=== PATIENT | female | born 1940 | race Caucasian/White ===

== ENCOUNTER → 2017-10-21 | Outpatient (CLI) | payer MEDICARE, OTHER ==
[~2017-10-21] MED LIST: ALEN10; CIPR500 PO; CLON.5 PO; CRUTCH2 USE; Flagyl500 MG PO; HYDACE5 PO; HYDR-86 PO; LISI5; RALO60; Zofran Odt8 MG PO
== END | disposition home or self-care (01) ==
LOC: LAB SHORT 15:50 → PLD 15:50
DX: D22.71 Melanocytic nevi of right lower limb, including hip (principal); L82.1 Other seborrheic keratosis
CPT/HCPCS: 88305

== ENCOUNTER 2018-12-24 09:42 | Day surgery (SDC) | payer MEDICARE, OTHER ==
[~2018-12-24] VITALS: Ht 152.4 cm; Wt 65.3 kg
[~2018-12-24 09:42] MED LIST changes: -ALEN10; +ALEN70 PO; -RALO60; +RALO60 PO
[2018-12-24] MEDS ORDERED: METO25ER (10:06)
[2018-12-24] MEDS ORDERED: CELE200 PO (10:19)
[2018-12-24] MEDS ORDERED: ABAT250V (10:19)
[2019-01-28] MEDS ORDERED: METO25 PO (11:22)
== END 2018-12-24 10:56 | disposition home or self-care (01) ==
LOC: ORSCSDS 09:42
PROVIDERS: Anesthesiology
PROC: 3E0R33Z Introduction of Anti-inflammatory into Spinal Canal, Percutaneous Approach (ICD-10-PCS; principal; 2018-12-24 11:00)
DX: M51.16 Intervertebral disc disorders with radiculopathy, lumbar region (principal); Z87.891 Personal history of nicotine dependence; Z79.899 Other long term (current) drug therapy
CPT/HCPCS: J1040

== ENCOUNTER 2019-02-05 12:21 | Day surgery (SDC) | payer MEDICARE, OTHER ==
[~2019-02-05] VITALS: Ht 152.4 cm; Wt 67.2 kg
[~2019-02-05 12:21] MED LIST changes: +ABAT250V; +CELE200 PO; +METO25 PO; +METO25ER
[2019-02-05] MEDS ORDERED: LOSA25 (13:33)
== END 2019-02-05 14:21 | disposition home or self-care (01) ==
LOC: ORSCSDS 12:21
PROVIDERS: Anesthesiology
PROC: 3E0R33Z Introduction of Anti-inflammatory into Spinal Canal, Percutaneous Approach (ICD-10-PCS; principal; 2019-02-05 13:30)
DX: M51.16 Intervertebral disc disorders with radiculopathy, lumbar region (principal); I10 Essential (primary) hypertension; Z79.899 Other long term (current) drug therapy
CPT/HCPCS: J1040

== ENCOUNTER 2019-03-02 11:29 | Emergency (ER) | payer MEDICARE, OTHER ==
[~2019-03-02] VITALS: Ht 152.4 cm; Wt 64.4 kg
[~2019-03-02 11:29] MED LIST changes: +LOSA25
[2019-03-02] MEDS ORDERED: OXYC5 PO (11:47)
[2019-03-02 13:15] LABS: Source, Urine Clean Catch
[2019-03-02 13:18] LABS: Bilirubin, Urine Neg (Neg); Blood, Urine Neg (Neg); Glucose Qualitative, Urine Neg (Neg); Ketones, Urine Neg (Neg); Leukocyte Esterase, Urine 1+ (Neg); Nitrite, Urine Neg (Neg); Protein, Urine Neg (Neg); Specific Gravity, Urine 1.015 (1.003-1.022); Urobilinogen, Urine NORM (Normal)
[2019-03-02 13:23] LABS: BASOPHILS ABSOLUTE AUTO 0.02 K/mm3 (0.00-0.23); BASOPHILS PERCENT AUTO 0 % (0-2); EOSINOPHILS ABSOLUTE AUTO 0.09 K/mm3 (0.00-0.68); EOSINOPHILS PERCENT AUTO 1 % (0-6); Hematocrit 38.1 % (33.0-51.0); Hemoglobin 12.3 g/dL (11.5-16.0); IMMATURE GRAN ABSOLUTE AUTO 0.04 K/mm3 (0.00-0.10); IMMATURE GRAN PERCENT AUTO 1 % (0-1); LYMPHOCYTES ABSOLUTE AUTO 1.18 K/mm3 (0.84-5.20); LYMPHOCYTES PERCENT AUTO 14 % (21-46); MONOCYTES ABSOLUTE AUTO 0.74 K/mm3 (0.16-1.47); MONOCYTES PERCENT AUTO 9 % (4-13); Mean Corpuscular HGB 31.6 pg (26.0-34.0); Mean Corpuscular HGB Conc 32.3 g/dL (31.5-36.5); Mean Corpuscular Volume 98 fL (80-100); Mean Platelet Volume 12.4 fL (9.1-12.4); NEUTROPHILS ABSOLUTE AUTO 6.49 K/mm3 (1.96-9.15); NEUTROPHILS PERCENT AUTO 76 % (41-73); Platelet Count 121 K/mm3 (150-400); RDW Coefficient Variation 13.5 % (11.7-14.2); RDW Standard Deviation 49.1 fL (35.1-46.3); Red Blood Cell Count 3.89 M/mm3 (3.80-5.20); White Blood Cell Count 8.56 K/mm3 (4.00-11.30)
[2019-03-02 13:26] LABS: Appearance, Urine Clear (Clear); Color, Urine Yellow (P-Yellow)
[2019-03-02 13:27] LABS: Bacteria Rare /hpf; Red Blood Cells, Urine 0-2 /hpf (0-2); Squamous Epithelial Cells Few /hpf (Few); White Blood Cells, Urine 0-2 /hpf (0-5)
[2019-03-02 13:36] LABS: Alanine Aminotransfer (ALT/SGP 23 U/L (12-78); Albumin, Blood 3.5 g/dL (3.4-5.0); Albumin/Globulin Ratio 0.9 (0.8-1.8); Alk Phos 49 U/L (50-136); Anion Gap 8 mmol/L (6-16); Aspartate Aminotrans (AST/SGOT 27 U/L (12-37); Bilirubin, Total 0.5 mg/dL (0.1-1.0); Blood Urea Nitrogen 26 mg/dL (8-24); Bun/Creatinine Ratio 46.8 (12.0-20.0); CO2, Blood 26 mmol/L (21-32); Calcium, Blood 8.9 mg/dL (8.5-10.1); Chloride, Blood 107 mmol/L (98-108); Creatinine, Blood 0.56 mg/dL (0.40-1.00); Globulin, Blood 3.8 g/dL (2.2-4.0); Glomerular Filtration Rate >60 (60-); Glucose, Blood 105 mg/dL (70-99); Potassium, Blood 3.7 mmol/L (3.5-5.5); Sodium, Blood 141 mmol/L (136-145); Total Protein, Blood 7.3 g/dL (6.4-8.2)
[2019-03-02] MEDS ORDERED: Protonix40 MG PO (13:56)
== END 2019-03-02 13:58 | disposition home or self-care (01) ==
LOC: ER 11:29
PROVIDERS: Internal Medicine
DX: K21.9 Gastro-esophageal reflux disease without esophagitis (principal); I10 Essential (primary) hypertension; Z87.891 Personal history of nicotine dependence; Z88.8 Allergy status to other drugs, medicaments and biological substances; Z88.5 Allergy status to narcotic agent; Z79.899 Other long term (current) drug therapy
CPT/HCPCS: 36415; 80053; 81001; 83690; 85025; 87086; 93005; 93010; 99284-25

== ENCOUNTER 2019-07-10 11:36 | Day surgery (SDC) | payer MEDICARE, OTHER ==
[~2019-07-10] VITALS: Ht 152.4 cm; Wt 66.7 kg
[~2019-07-10 11:36] MED LIST changes: +CELE100 PO; +HYDR1TAB94 PO; -LOSA25; +LOSA25 PO; +OXYC5 PO; +Protonix40 MG PO
--- NOTE | 2019-07-10 13:45 | NUR ---
07/10/19 6934 Tia Calderon PT WAS NOTIFIED UPON ARRIVAL OF DELAY, SHE WAS UPDATED FREQUENTLY ON APPROXIMATE START TIME. SHE HAD CALL LIGHT WITHIN REACH AND WAS GIVEN AN ADDITIONAL BLANKET. BED WAS IN THE LOWEST LOCKED POSITION.
--- NOTE | 2019-07-10 15:02 | NUR ---
07/10/19 1502 Gita Piper ASSUMED CARE OF PATIENT AT 1450. PATIENT IS STABLE WITHOUT ANY PAIN. IS AT SIDE, ICE PACK UNDER RIGHT ANKLE. PATIENT IS TOLERATING PO FLUIDS/FOOD. PATIENT WILL BE DISCHARGED HOME.
== END 2019-07-10 15:11 | disposition home or self-care (01) ==
LOC: ORSCSDS 11:36
PROVIDERS: Podiatrist Foot & Ankle Surgery
PROC: 0SRP0JZ Replacement of Right Toe Phalangeal Joint with Synthetic Substitute, Open Approach (ICD-10-PCS; principal; 2019-07-10 13:00)
DX: M20.41 Other hammer toe(s) (acquired), right foot (principal); M20.61 Acquired deformities of toe(s), unspecified, right foot; I10 Essential (primary) hypertension; I25.2 Old myocardial infarction; B19.10 Unspecified viral hepatitis B without hepatic coma; Z87.891 Personal history of nicotine dependence; Z79.899 Other long term (current) drug therapy
CPT/HCPCS: J0171; J0690; J2250; J2704; J7120

== ENCOUNTER → 2021-08-02 | Outpatient (CLI) | payer MEDICARE, OTHER | END | disposition home or self-care (01) | LOC: LAB SHORT 14:00 → LAB 14:00 | DX: A49.9 Bacterial infection, unspecified (principal); L81.4 Other melanin hyperpigmentation; L82.1 Other seborrheic keratosis; D22.5 Melanocytic nevi of trunk; D22.39 Melanocytic nevi of other parts of face; D22.61 Melanocytic nevi of right upper limb, including shoulder; D22.62 Melanocytic nevi of left upper limb, including shoulder; D48.5 Neoplasm of uncertain behavior of skin; L82.0 Inflamed seborrheic keratosis; L29.8 Other pruritus; B37.2 Candidiasis of skin and nail | CPT/HCPCS: 87070; 87205 ==

== ENCOUNTER → 2022-11-17 | Outpatient (CLI) | payer MEDICARE, OTHER ==
[~2022-11-17] MED LIST changes: +AZIT250 PO
[2022-11-17 14:06] LABS: BASOPHILS ABSOLUTE AUTO 0.05 K/mm3 (0.00-0.23); BASOPHILS PERCENT AUTO 1 % (0-2); EOSINOPHILS ABSOLUTE AUTO 0.16 K/mm3 (0.00-0.68); EOSINOPHILS PERCENT AUTO 2 % (0-6); Hematocrit 36.4 % (33.0-51.0); IMMATURE GRAN ABSOLUTE AUTO 0.03 K/mm3 (0.00-0.10); IMMATURE GRAN PERCENT AUTO 0 % (0-1); LYMPHOCYTES ABSOLUTE AUTO 1.97 K/mm3 (0.84-5.20); LYMPHOCYTES PERCENT AUTO 19 % (21-46); MONOCYTES ABSOLUTE AUTO 0.93 K/mm3 (0.16-1.47); MONOCYTES PERCENT AUTO 9 % (4-13); Mean Corpuscular HGB 30.9 pg (26.0-34.0); Mean Corpuscular Volume 94 fL (80-100); Mean Platelet Volume 10.8 fL (9.1-12.4); NEUTROPHILS ABSOLUTE AUTO 7.46 K/mm3 (1.96-9.15); NEUTROPHILS PERCENT AUTO 70 % (41-73); Platelet Count 249 K/mm3 (150-400); RDW Coefficient Variation 13.3 % (11.7-14.2); RDW Standard Deviation 45.9 fL (35.1-46.3); Red Blood Cell Count 3.88 M/mm3 (3.80-5.20)
[2022-11-17 14:16] LABS: Albumin, Blood 3.3 g/dL (3.4-5.0); Albumin/Globulin Ratio 0.6 (0.8-1.8); Bilirubin, Total 0.3 mg/dL (0.1-1.0); Bun/Creatinine Ratio 52.1 (12.0-20.0); Calcium, Blood 9.7 mg/dL (8.5-10.1); Creatinine, Blood 0.71 mg/dL (0.40-1.00); Globulin, Blood 5.2 g/dL (2.2-4.0); Potassium, Blood 4.1 mmol/L (3.5-5.5); Total Protein, Blood 8.5 g/dL (6.4-8.2)
== END | disposition home or self-care (01) ==
LOC: LAB 14:01 → LAB SHORT 14:01
PROVIDERS: Physician Assistant Surgical
DX: R10.11 Right upper quadrant pain (principal)
CPT/HCPCS: 80053; 83690; 85025

== ENCOUNTER 2022-11-21 11:49 | Emergency (ER) | payer MEDICARE, OTHER ==
[~2022-11-21] VITALS: Ht 149.9 cm; Wt 65.3 kg
[~2022-11-21 11:49] MED LIST changes: -AZIT250 PO
[2022-11-21 13:46] LABS: BASOPHILS ABSOLUTE AUTO 0.04 K/mm3 (0.00-0.23); BASOPHILS PERCENT AUTO 0 % (0-2); EOSINOPHILS ABSOLUTE AUTO 0.09 K/mm3 (0.00-0.68); EOSINOPHILS PERCENT AUTO 1 % (0-6); Hematocrit 38.3 % (33.0-51.0); Hemoglobin 12.6 g/dL (11.5-16.0); IMMATURE GRAN ABSOLUTE AUTO 0.04 K/mm3 (0.00-0.10); IMMATURE GRAN PERCENT AUTO 0 % (0-1); LYMPHOCYTES ABSOLUTE AUTO 2.08 K/mm3 (0.84-5.20); LYMPHOCYTES PERCENT AUTO 22 % (21-46); MONOCYTES ABSOLUTE AUTO 0.63 K/mm3 (0.16-1.47); MONOCYTES PERCENT AUTO 7 % (4-13); Mean Corpuscular HGB 30.7 pg (26.0-34.0); Mean Corpuscular HGB Conc 32.9 g/dL (31.5-36.5); Mean Corpuscular Volume 93 fL (80-100); Mean Platelet Volume 10.6 fL (9.1-12.4); NEUTROPHILS PERCENT AUTO 69 % (41-73); Platelet Count 291 K/mm3 (150-400); RDW Coefficient Variation 13.3 % (11.7-14.2); RDW Standard Deviation 46.1 fL (35.1-46.3); Red Blood Cell Count 4.11 M/mm3 (3.80-5.20); White Blood Cell Count 9.28 K/mm3 (4.00-11.30)
[2022-11-21 14:10] LABS: Albumin, Blood 3.6 g/dL (3.4-5.0); Albumin/Globulin Ratio 0.7 (0.8-1.8); Bilirubin, Total 0.3 mg/dL (0.1-1.0); Calcium, Blood 9.6 mg/dL (8.5-10.1); Creatinine, Blood 0.63 mg/dL (0.40-1.00); Globulin, Blood 5.3 g/dL (2.2-4.0); Potassium, Blood 3.7 mmol/L (3.5-5.5); Total Protein, Blood 8.9 g/dL (6.4-8.2)
[2022-11-21 14:29] LABS: Source, Urine Clean Catch
[2022-11-21 14:36] LABS: Appearance, Urine Clear (Clear); Bilirubin, Urine Neg (Neg); Blood, Urine Neg (Neg); Color, Urine Yellow (P-Yellow); Glucose Qualitative, Urine Neg (Neg); Ketones, Urine Neg (Neg); Leukocyte Esterase, Urine Neg (Neg); Nitrite, Urine Pos (Neg); Protein, Urine Neg (Neg); Specific Gravity, Urine 1.005 (1.003-1.022); Urobilinogen, Urine NORM (Normal)
[2022-11-21 16:00] LABS: Bacteria Many /hpf; Red Blood Cells, Urine 0-2 /hpf (0-2); Squamous Epithelial Cells Rare /hpf (Few); Transitional Epithelial Cells Rare /hpf (0-Rare)
[2022-11-21 16:30] VITALS: BP 160/72
[2022-11-21] MEDS ORDERED: AZIT250 PO (16:39)
== END 2022-11-21 16:58 | disposition home or self-care (01) ==
LOC: ER 11:49
PROVIDERS: Emergency Medicine
DX: J18.9 Pneumonia, unspecified organism (principal); R10.11 Right upper quadrant pain; R07.9 Chest pain, unspecified; Z87.891 Personal history of nicotine dependence
CPT/HCPCS: 71046; 74177; 80053; 81001; 83690; 84484; 85025; 96361; 96374-59; 96375; 99284-25; J1170; J2405; J3010; J7030; Q9967

== ENCOUNTER 2024-02-16 18:28 | Inpatient (IN) | payer MEDICARE, OTHER ==
[~2024-02-16] VITALS: Ht 149.9 cm; Wt 58.5 kg
[~2024-02-16 18:28] MED LIST changes: +AZIT250 PO
[2024-02-16] MEDS ORDERED: METOPROLOL SUCC25 MG PO (18:54)
[2024-02-16] MEDS ORDERED: PARO10 PO (18:55)
[2024-02-16] MEDS ORDERED: FentaNYL Citrate 50 MCG/ML 2 ML Injection IV ONE ×2 (19:20→21:40)
[2024-02-16 19:38] LABS: BASOPHILS ABSOLUTE AUTO 0.03 K/mm3 (0.00-0.23); BASOPHILS PERCENT AUTO 0 % (0-2); EOSINOPHILS ABSOLUTE AUTO 0.07 K/mm3 (0.00-0.68); EOSINOPHILS PERCENT AUTO 1 % (0-6); Hematocrit 34.6 % (33.0-51.0); Hemoglobin 10.9 g/dL (11.5-16.0); IMMATURE GRAN ABSOLUTE AUTO 0.06 K/mm3 (0.00-0.10); IMMATURE GRAN PERCENT AUTO 1 % (0-1); LYMPHOCYTES PERCENT AUTO 11 % (21-46); MONOCYTES ABSOLUTE AUTO 0.61 K/mm3 (0.16-1.47); MONOCYTES PERCENT AUTO 6 % (4-13); Mean Corpuscular HGB 28.3 pg (26.0-34.0); Mean Corpuscular HGB Conc 31.5 g/dL (31.5-36.5); Mean Corpuscular Volume 90 fL (80-100); Mean Platelet Volume 11.4 fL (9.1-12.4); NEUTROPHILS ABSOLUTE AUTO 8.33 K/mm3 (1.96-9.15); NEUTROPHILS PERCENT AUTO 82 % (41-73); Platelet Count 176 K/mm3 (150-400); RDW Coefficient Variation 15.8 % (11.7-14.2); RDW Standard Deviation 51.7 fL (35.1-46.3); Red Blood Cell Count 3.85 M/mm3 (3.80-5.20)
[2024-02-16 19:55] LABS: Albumin, Blood 3.2 g/dL (3.4-5.0); Albumin/Globulin Ratio 0.8 (0.8-1.8); Bilirubin, Total 0.2 mg/dL (0.1-1.0); Bun/Creatinine Ratio 51.2 (12.0-20.0); Calcium, Blood 8.8 mg/dL (8.5-10.1); Creatinine, Blood 0.53 mg/dL (0.40-1.00); Globulin, Blood 4.2 g/dL (2.2-4.0); Potassium, Blood 3.2 mmol/L (3.5-5.5); Total Protein, Blood 7.4 g/dL (6.4-8.2)
[2024-02-16] MEDS ORDERED: HydrALAZINE HCl 20 MG / ML 1ML Vial IV PRN (23:50)
[2024-02-16] MEDS ORDERED: FentaNYL Citrate 50 MCG/ML 2 ML Injection IV PRN (23:50)
[2024-02-17] VITALS (9 sets, daily range): BP systolic 146–189; BP diastolic 58–95
[2024-02-17] MEDS ORDERED: Potassium Chloride 40 MEQ in NS 250 ML IV ONE (00:30)
[2024-02-17] MEDS ORDERED: RALO60 PO (00:49)
[2024-02-17] MEDS ORDERED: NS 250 ML IV PRN (01:00)
[2024-02-17] MEDS ORDERED: NS 1,000 ML IV SCH (01:00)
--- NOTE | 2024-02-17 01:30 | NUR ---
WHEN DISCUSSING CODE STATUS, PATIENT REQUESTING TO BE A DNR. CURRENT ORDER FOR FULL CODE. EDUCATION PROVIDED REGARDING DNR STATUS - PATIENT VERBALIZES UNDERSTANDING AND WISHES TO BE A DNR. MD CONTACTED. ORDER RECEIVED TO CHANGE CODE STATUS TO DNR.
--- NOTE | 2024-02-17 01:44 | NUR ---
ARRIVAL TO PCU AFTER RECEIVING REPORT FROM ED RN, PATIENT TRANSFERRED TO PCU AT APPROX 0030. PATIENT TRANSFERRED FROM ED GURNEY TO BED VIA SLIDER SHEET. PATIENT ALERT AND ORIENTED X4. COMMUNICATES NEEDS EFFECTIVELY. S/P GROUND LEVEL FALL AT HOME - DENIES LOC. PERRLA. MOVES ALL EXTREMITIES ON COMMAND WITH LIMITED MOBILITY TO LUE DUE TO L CLAVICLE FX. MULTIPLE RIB FXs. REPORTS PAIN TOLERABLE AT 4/10 - WILL CONTINUE TO MONITOR AND MEDICATE PER EMAR PRN. TELEMETRY SHOWING SINUS 60s-70s. SBP 160s - PATIENT REPORTS THAT IS HER BASELINE BP. PRN IV HYDRALAZINE ORDERED FOR SBP >170. DENIES CHEST PRESSURE, PALPITATIONS. ON ROOM AIR, SATs >90%. RR SHALLOW, EVEN, AND UNLABORED. INCENTIVE SPIROMETER AT BEDSIDE - EDUCATED ON USE. PATIENT USES FWW AT BASELINE - UP TO BSC WITH SBA. CALL LIGHT IN REACH. IVF AND IV POTASSIUM INFUSING PER EMAR.
[2024-02-17 03:50] LABS: BASOPHILS ABSOLUTE AUTO 0.04 K/mm3 (0.00-0.23); BASOPHILS PERCENT AUTO 0 % (0-2); EOSINOPHILS ABSOLUTE AUTO 0.02 K/mm3 (0.00-0.68); EOSINOPHILS PERCENT AUTO 0 % (0-6); Hematocrit 35.1 % (33.0-51.0); Hemoglobin 11.1 g/dL (11.5-16.0); IMMATURE GRAN ABSOLUTE AUTO 0.05 K/mm3 (0.00-0.10); IMMATURE GRAN PERCENT AUTO 1 % (0-1); LYMPHOCYTES ABSOLUTE AUTO 1.49 K/mm3 (0.84-5.20); LYMPHOCYTES PERCENT AUTO 15 % (21-46); MONOCYTES ABSOLUTE AUTO 0.83 K/mm3 (0.16-1.47); MONOCYTES PERCENT AUTO 8 % (4-13); Mean Corpuscular HGB 28.5 pg (26.0-34.0); Mean Corpuscular HGB Conc 31.6 g/dL (31.5-36.5); Mean Corpuscular Volume 90 fL (80-100); Mean Platelet Volume 11.3 fL (9.1-12.4); NEUTROPHILS ABSOLUTE AUTO 7.74 K/mm3 (1.96-9.15); NEUTROPHILS PERCENT AUTO 76 % (41-73); Platelet Count 162 K/mm3 (150-400); RDW Coefficient Variation 15.9 % (11.7-14.2); RDW Standard Deviation 52.9 fL (35.1-46.3); Red Blood Cell Count 3.89 M/mm3 (3.80-5.20); White Blood Cell Count 10.17 K/mm3 (4.00-11.30)
[2024-02-17 04:14] LABS: Albumin, Blood 3.2 g/dL (3.4-5.0); Albumin/Globulin Ratio 0.8 (0.8-1.8); Bilirubin, Total 0.2 mg/dL (0.1-1.0); Bun/Creatinine Ratio 41.3 (12.0-20.0); Calcium, Blood 8.4 mg/dL (8.5-10.1); Creatinine, Blood 0.51 mg/dL (0.40-1.00); Globulin, Blood 4.1 g/dL (2.2-4.0); Potassium, Blood 3.8 mmol/L (3.5-5.5); Total Protein, Blood 7.3 g/dL (6.4-8.2)
--- NOTE | 2024-02-17 05:19 | NUR ---
SHIFT SUMMARY NO ACUTE EVENTS SINCE ARRIVAL TO PCU. PATIENT SLEPT T/O, EASILY AROUSABLE WITH VERBAL STIMULI. MEDICATED X1 WITH IV FENTANYL FOR L CLAVICLE, RIB FX PAIN. TELEMETRY SHOWING SINUS LO 50s-60s. PATIENT DID EXPERIENCE X1 2.60 PAUSE, PATIENT ASYMPTOMATIC DURING EPISODE. STRIP SCANNED TO CHART BY SOUND MIXER. BP STABLE, SBP 150s-160s. REMAINS ON ROOM AIR, SATs >90%. RR REMAIN SHALLOW, EVEN. MILD SHORTNESS OF BREATH WITH MOBILITY. UP TO BSC TO VOID WITH SBA FROM STAFF. IVF INFUSING PER EMAR. CALL LIGHT IN REACH. WILL CONTINUE TO MONITOR AND REPORT TO ONCOMING RN.
[2024-02-17] MEDS ORDERED: Acetaminophen 325 MG TABLET PO PRN (09:30)
[2024-02-17] MEDS ORDERED: FentaNYL Citrate 50 MCG/ML 2 ML Injection IV PRN (09:55)
[2024-02-17] MEDS ORDERED: HYDROcodone 5-APAP 325 TAB PO PRN (09:55)
--- NOTE | 2024-02-17 17:28 | NUR ---
SHIFT SUMMARY PT A&OX4. SP02>90% ON RA. INCENTIVE SPIROMETER IN ROOM, PT ENCOURAGED TO USE. PT STATES "I GOT TO 500 THIS MORNING". PT CHANGED TO SURGICAL NO TELE STATUS. HTN NOTED, PT STATES "NORMAL" FOR HER. HYDRALAZINE GIVEN X1 PER EMAR. MD SAUCEDO IN ROOM TO CONSULT. MD GUERRERO IN ROOM TO CONSULT. MD GUERRERO W/ ORDERS FOR ARM SLING WHEN AMBULATING. PLACED L ARM IN SLING. PT IN ROOM TO EVALUATE PT. PT ABLE TO AMBULATED 1P ASSIST W/ HEMIWALKER AND GB TO BATHROOM. PT C/O OF PAIN, MEDICATED W/ TYLENOL PER EMAR. PT MEDICATED W/ NORCO PER EMAR THIS EVENING, STATES THAT IS WHAT SHE TAKES AT HOME FOR PAIN. PT'S AND DAUGHTER IN ROOM THIS EVENING. PT SITTING IN CHAIR EATING DINNER. CALL LIGHT IN REACH.
[2024-02-17] MEDS ORDERED: Docusate Sodium 100 MG Cap PO SCH (21:00)
[2024-02-17] MEDS ORDERED: ClonazePAM 0.5 MG Tab PO SCH (21:00)
[2024-02-17] MEDS ORDERED: Losartan Potassium 50 MG Tab PO SCH (21:00)
[2024-02-17] MEDS ORDERED: Metoprolol Succinate 25 MG TABCR PO SCH (21:00)
--- NOTE | 2024-02-18 00:12 | NUR ---
PT SLEEPING, EVEN, UNLABORED RESPIRATIONS NOTED. BED IN LOWEST POSITION, BRAKES ON, UPPER SIDES RAILS UP. CALL LIGHT AND BED SIDE TABLE IN REACH.
[2024-02-18 03:40] VITALS: BP 156/77
[2024-02-18 04:04] LABS: BASOPHILS ABSOLUTE AUTO 0.04 K/mm3 (0.00-0.23); BASOPHILS PERCENT AUTO 0 % (0-2); EOSINOPHILS ABSOLUTE AUTO 0.19 K/mm3 (0.00-0.68); EOSINOPHILS PERCENT AUTO 2 % (0-6); Hematocrit 34.2 % (33.0-51.0); IMMATURE GRAN ABSOLUTE AUTO 0.03 K/mm3 (0.00-0.10); IMMATURE GRAN PERCENT AUTO 0 % (0-1); LYMPHOCYTES ABSOLUTE AUTO 2.04 K/mm3 (0.84-5.20); LYMPHOCYTES PERCENT AUTO 22 % (21-46); MONOCYTES ABSOLUTE AUTO 1.08 K/mm3 (0.16-1.47); MONOCYTES PERCENT AUTO 12 % (4-13); Mean Corpuscular HGB 28.7 pg (26.0-34.0); Mean Corpuscular HGB Conc 32.2 g/dL (31.5-36.5); Mean Corpuscular Volume 89 fL (80-100); Mean Platelet Volume 11.5 fL (9.1-12.4); NEUTROPHILS ABSOLUTE AUTO 5.84 K/mm3 (1.96-9.15); NEUTROPHILS PERCENT AUTO 63 % (41-73); Platelet Count 167 K/mm3 (150-400); RDW Coefficient Variation 15.9 % (11.7-14.2); RDW Standard Deviation 52.5 fL (35.1-46.3); Red Blood Cell Count 3.83 M/mm3 (3.80-5.20); White Blood Cell Count 9.22 K/mm3 (4.00-11.30)
[2024-02-18 04:25] LABS: Bun/Creatinine Ratio 23.9 (12.0-20.0); Calcium, Blood 8.2 mg/dL (8.5-10.1); Creatinine, Blood 0.5 mg/dL (0.40-1.00); Potassium, Blood 3.5 mmol/L (3.5-5.5)
--- NOTE | 2024-02-18 05:16 | NUR ---
INFORMED BY BREAK NURSE PT HAD A SIGNIFICANT DESAT WHILE SLEEPING. O2 WAS PLACED AND PT SATS IMPROVED UPON AWAKING. PT ASSESSED AND O2 REMOVED AT THIS TIME. PT IS AWAKE, AOX4 IN BED, MILDLY TEARFUL THE EVENT AND SHOCK OF BEING WOKEN UP HAS SCARED HER. REASSURED PT. PT HAS BEEN STABLE THROUGHOUT THE SHIFT, NO PREVIOUS EPISODEDS OF LOW SATS.
--- NOTE | 2024-02-18 06:43 | NUR ---
PT WAS STABLE THROUGHOUT SHIFT UNTIL X1 EPISODE OF LOW O2 SATS WHILE SLEEPING. PT RECOVERED QUICKLY PER OTHER NURSING STAFF AFTER BEING WOKEN UP AND O2 APPLIED. PT RE-ASSESSED AND O2 WAS REMOVED. PT WAS MAINTAINING GOOD O2 SATS PRIOR TO THIS AND HAS RESUMED MAINTAINING GOOD O2 SATS AFTER EVENT. PT REMAINS AOX4 WITH NO NEW COMPLAINTS. ICE PACK IS TO LEFT CLAVICLE. PT WAS WEARING A DNR BAND AND THAT HAS BEEN REMOVED PT WAS LISTED FULL CODE IN THE ORDERS.
[2024-02-18 07:34] VITALS: BP 152/78
[2024-02-18] MEDS ORDERED: RALOXIFENE HCL 60 MG PO SCH (09:00)
[2024-02-18] MEDS ORDERED: PARoxetine HCl 10 MG Tab PO SCH (09:00)
--- NOTE | 2024-02-18 13:18 | NUR ---
PT DISCHARGED TO HOME WIHT DISCHARGE ORDERS AND HOME HEALTH. DAUGHTER SANDI MADE AWARE OF THE DISCHARGE PLAN. NO ACUTE CHANGE SICNE THE BEGINNING OF THE SHIFT, VITALS HAS BEEN STABLE. PAIN CONTROL WITH PAIN MEDS AND ICE PACK. PT ABLE TO PARTICIPATE WITH PT/OT. AMBUALTES TO THE BATHROOM VIA WALKER. NO OTHER ISSUES REPORTED FOR THE SHIFT, ALL NEW MEDICATIONS AND DISCHARGE INSTRUCTIONS DISLOSED WITH BOTH DAUGHTER AND THE PT. ALL BELONGINGS SENT WITH THE PT, PT ACCOMPANIED VIA WHEELCHAIR UPON DISCHARGE
== END 2024-02-18 13:09 | disposition home or self-care (01) | DRG 563 ==
LOC: ER 18:28 → MEDS 22:54 → PCU 22:54
PROVIDERS: Family Medicine; Student in an Organized Health Care Education/Training Program; ADMIT Internal Medicine
DX: S42.032A Displaced fracture of lateral end of left clavicle, initial encounter for closed fracture (principal); S22.42XA Multiple fractures of ribs, left side, initial encounter for closed fracture; I10 Essential (primary) hypertension; M54.9 Dorsalgia, unspecified; G89.29 Other chronic pain; D64.9 Anemia, unspecified; M19.90 Unspecified osteoarthritis, unspecified site; M81.0 Age-related osteoporosis without current pathological fracture; E87.6 Hypokalemia; W18.30XA Fall on same level, unspecified, initial encounter; Z88.8 Allergy status to other drugs, medicaments and biological substances; Z79.899 Other long term (current) drug therapy; Z87.19 Personal history of other diseases of the digestive system; Z90.49 Acquired absence of other specified parts of digestive tract; Z98.1 Arthrodesis status; Z87.891 Personal history of nicotine dependence; Z90.710 Acquired absence of both cervix and uterus
CPT/HCPCS: 36415; 70450; 71260; 72125; 80048; 80053; 84484; 85025; 93005; 93010; 94760; 96374-59; 96376; 97110; 97116; 97162; 97165; 97530; 99285-25; A9270; J0360; J3010; J3480; J7030; J7050; Q9967